=== PATIENT | male | born 1980 | race Caucasian/White ===

== ENCOUNTER 2018-04-23 07:47 | Emergency (ER) | payer MEDICAID, OTHER ==
[~2018-04-23] VITALS: Ht 188 cm; Wt 81.8 kg
[2018-04-23] MEDS ORDERED: folic acid 1mg/0.2ml inj IV ONE (08:10)
[2018-04-23] MEDS ORDERED: ondansetron/PF 4mg/2ml inj IV ONE (08:10)
[2018-04-23] MEDS ORDERED: LORazepam 2 mg/ml vial IV ONE ×2 (08:10→08:30)
[2018-04-23] MEDS ORDERED: normal saline 1000ML IV soln IVB ONE (08:10)
[2018-04-23] MEDS ORDERED: magnesium 1gm/100ml D5W IVPB 100 ML IV ONE (08:10)
[2018-04-23] MEDS ORDERED: thiamine 100mg/ml 2ml inj. IV ONE (08:10)
[2018-04-23] MEDS ORDERED: magnesium 2GM in 50ml NS 25 ML IV ONE (08:27)
[2018-04-23 08:59] LABS: BASOPHILS % (AUTO) 1.1 % (0-1); EOSINOPHILS # (AUTO) 0.1 X10'3 (0-0.9); EOSINOPHILS % (AUTO) 1.3 % (0-6); HEMATOCRIT 41.7 % (42.0-52.0); HEMOGLOBIN 14.1 g/dl (14.0-17.9); LYMPHOCYTES # (AUTO) 2.1 X10'3 (1.1-4.8); LYMPHOCYTES % (AUTO) 45.9 % (21-51); MEAN CORPUSCULAR HEMOGLOBIN 31.4 PG (27.0-31.0); MEAN CORPUSCULAR HGB CONC 33.8 % (33.0-36.5); MEAN CORPUSCULAR VOLUME 92.7 FL (78-98); MONOCYTES # (AUTO) 0.6 X10'3 (0-0.9); MONOCYTES % (AUTO) 13.4 % (2-12); NEUTROPHILS # (AUTO) 1.8 X10'3 (1.8-7.7); NEUTROPHILS % (AUTO) 38.3 % (42-75); PLATELET COUNT 307 X10'3 (140-440); RED CELL DISTRIBUTION WIDTH 16.6 % (11.5-14.5); WHITE BLOOD COUNT 4.6 X10'3 (4.5-11.0)
[2018-04-23 09:16] LABS: ALANINE AMINOTRANSFERASE 55 U/L (12-78); ALBUMIN 3.8 G/DL (3.4-5.0); ALKALINE PHOSPHATASE 76 IU/L (46-116); ANION GAP 14 (8-16); ASPARTATE AMINO TRANSFERASE 72 U/L (10-37); BILIRUBIN,TOTAL 0.7 MG/DL (0.1-1.0); BLOOD UREA NITROGEN 12 MG/DL (7-18); CALCIUM 8.9 MG/DL (8.5-10.1); CHLORIDE 104 MMOL/L (99-107); CREATININE 0.86 MG/DL (0.60-1.10); ETHANOL 0.134 GM/DL (0.0-0.010); GLUCOSE 86 MG/DL (70-104); POTASSIUM 4.1 MMOL/L (3.5-5.1); SODIUM 142 MMOL/L (135-145); TOTAL PROTEIN 7.7 G/DL (6.4-8.2); eGFR > 90 ML/MIN
[2018-04-23] MEDS ORDERED: GABA300C PO (09:38)
[2018-04-23 11:14] VITALS: BP 137/69
== END 2018-04-23 12:30 | disposition home or self-care (01) ==
LOC: ER 07:48
DX: F10.239 Alcohol dependence with withdrawal, unspecified (principal); F10.229 Alcohol dependence with intoxication, unspecified; K72.90 Hepatic failure, unspecified without coma; K62.3 Rectal prolapse; F15.90 Other stimulant use, unspecified, uncomplicated; Z88.1 Allergy status to other antibiotic agents; Z79.899 Other long term (current) drug therapy; Y90.9 Presence of alcohol in blood, level not specified; Z59.0 Homelessness
CPT/HCPCS: 36415; 71045; 80053; 80320; 82140; 82948; 85025; 93005; 96361; 96365; 96366; 96375; 99284; J2060; J2405; J3411; J3475; J3490; J7030

== ENCOUNTER 2018-04-23 18:46 | Emergency (ER) | payer MEDICAID ==
[~2018-04-23] VITALS: Ht 188 cm; Wt 69.3 kg
[~2018-04-23 18:46] MED LIST: GABA300C PO
[2018-04-23] MEDS ORDERED: LORazepam 2 mg/ml vial IM ONE ×2 (20:30→21:05)
[2018-04-23] MEDS ORDERED: LORazepam 2 mg/ml vial IV ONE (21:25)
[2018-04-23 22:45] VITALS: BP 156/56
== END 2018-04-23 22:50 | disposition home or self-care (01) ==
LOC: ER 18:47
DX: F10.229 Alcohol dependence with intoxication, unspecified (principal); F10.239 Alcohol dependence with withdrawal, unspecified; F15.90 Other stimulant use, unspecified, uncomplicated; Z88.1 Allergy status to other antibiotic agents; Z79.899 Other long term (current) drug therapy; Y90.9 Presence of alcohol in blood, level not specified; Z59.0 Homelessness
CPT/HCPCS: 96374; 99284; J2060